=== PATIENT | female | born 1985 | race Caucasian/White ===

== ENCOUNTER → 2023-11-24 | Emergency (ER) | payer BC ==
[~2023-11-24] VITALS: Ht 162.6 cm; Wt 66.7 kg
[2023-11-24] MEDS: IV NS 0.9% 1,000 ML BAG IV ONE (11:49)
[2023-11-24] MEDS: LEVETIRACETAM (500MG) 1,000 MG in IV NS 0.9% 90 ML IV STA (12:03)
[2023-11-24 14:26] VITALS: BP 97/60; TEMP 97.8; O2SAT 99
== END | disposition home or self-care (01) ==
LOC: ER 11:21
DX: G40.909 Epilepsy, unspecified, not intractable, without status epilepticus (principal); F15.10 Other stimulant abuse, uncomplicated; R51.9 Headache, unspecified; M79.10 Myalgia, unspecified site; Z60.2 Problems related to living alone
CPT/HCPCS: 99283; 96374; J7030; J1953